=== PATIENT | female | born 1980 | race Caucasian/White ===

== ENCOUNTER 2024-10-10 08:41 | Outpatient (REF) | payer BC, SELFPAY ==
--- NOTE | ~2024-10-10 | XR_ITS ---
CLINICAL HISTORY: M25.521 - Pain in right elbow 3 view right elbow Comparison: None Findings: Suboptimal positioning. No acute fractures. Normal alignment. No significant arthritic change or erosions. No joint effusion. No radiopaque foreign body. IMPRESSION: 1. Suboptimal positioning. No acute findings. This document has been electronically signed by: Kelin Ibanez MD on 10/11/2024 08:14:32
--- NOTE | ~2024-10-10 | XR_ITS ---
CLINICAL HISTORY: M25.511 - Pain in right shoulder 2 view right shoulder Comparison: None Findings: No fractures or dislocations. No significant arthritic change. No erosions. No radiopaque foreign body. IMPRESSION: 1. No acute findings This document has been electronically signed by: Kelin Ibanez MD on 10/11/2024 08:12:24
== END 2024-10-10 08:42 | disposition home or self-care (01) ==
LOC: HO.HOSX 08:41
PROVIDERS: Visit Provider Physician Assistant
DX: M25.511 Pain in right shoulder (principal); M25.521 Pain in right elbow
CPT/HCPCS: 73030; 73080

== ENCOUNTER 2024-10-10 08:44 | Outpatient (AMB) | payer BC, SELFPAY ==
--- NOTE | 2024-10-10 08:59 | MHC.OFFVIS ---
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 Patient reports in March of 2024 she was roller skating when she fell backwards landing on her right arm. Patient was previously seen at [facility] and was told of having a radial head fracture. She was given at home exercises however these increased her pain and she had felt a snap in her bicep area. Currently she has constant stabbing pain in her shoulder and a deep throbbing pain in her elbow. States her collar bone feels broken. Limited ROM, affecting her AODL. No numbness or tingling. She misses work at least twice a week due to her pain. Finds no relief with taking Naproxen BID. 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 She fell in Mar 2024 and was dx with radial head fx. She was seen at [facility] and was treated for radial head fracture. She states she had to follow-ups. She was referred to physical therapy but states she tried to do this on her own however developed significant stiffness of the right shoulder and elbow. She tried to make a follow up with them but was unsuccessful. She presents to our office for further follow-up. She states she continues to have limitations with her right shoulder with movement along with her elbow. 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 Unable to perform internal rotation. Right elbow held in flexion. Results Reviewed Results Reviewed: X-rays of the right shoulder obtained in the office today and reviewed by me are negative for any acute or chronic abnormalities. X-rays of the right elbow are obtained today in the office and reviewed by me show a stable nondisplaced radial head fracture. Assessment & Plan Assessment & Plan (1) Stiffness of right shoulder joint: Code(s): M25.611 - Stiffness of right shoulder, not elsewhere classified Category: Medical (2) Stiffness of right elbow joint: Code(s): M25.621 - Stiffness of right elbow, not elsewhere classified Category: Medical (3) Right radial head fracture: Code(s): S52.121A - Displaced fracture of head of right radius, initial encounter for closed fracture Category: Medical Plan We discussed options today which include physical therapy to work on aggressive range of motion of the right upper extremity. I did explain that she will have to go for the next 6-8 weeks at least to attempt in improving her motion. I would like to see her back in 3 months so we can reassess to determine what the next step is if she continues to have significant stiffness. Orders: Orders XR elbow RT min 3V Today M25.521 - Pain in right elbow PT Evaluation and Treatment Today M25.611 - Stiffness of right shoulder, not elsewhere classified, M25.621 - Stiffness of right elbow, not elsewhere classified, S52.121A - Displaced fracture of head of right radius, initial encounter for closed fracture XR shoulder RT min 2V Today M25.511 - Pain in right shoulder Coding Level of Care Code New Pt Level 3 (32287) Complex EM visit Add On G2211 Diagnoses Stiffness of right shoulder joint M25.611 Stiffness of right elbow joint M25.621 Right radial head fracture S52.121A
[2024-10-10 09:01] VITALS: BMI 26.6
== END 2024-10-10 09:42 | disposition home or self-care (01) ==
PROVIDERS: PCP Internal Medicine; Visit Provider Physician Assistant
DX: M25.611 Stiffness of right shoulder, not elsewhere classified (principal); M25.621 Stiffness of right elbow, not elsewhere classified; S52.121A Displaced fracture of head of right radius, initial encounter for closed fracture
CPT/HCPCS: 99203

== ENCOUNTER → 2024-10-10 08:45 | Outpatient (BNV) | payer BC, SELFPAY | PROVIDERS: Visit Provider Radiology Diagnostic Radiology | DX: M25.521 Pain in right elbow (principal); M25.511 Pain in right shoulder | CPT/HCPCS: 73030; 73080 ==

== ENCOUNTER 2024-12-16 09:00 | Outpatient (RCR) | payer BC, SELFPAY ==
--- NOTE | 2024-10-22 11:30 | MHC.OT.EP ---
[address] [phone] Occupational Therapy Plan of Care Patient Name: Gunjan Saravia Date of Evaluation: 10/22/24 Diagnosis: Radial Head Fracture Pain Location: Pain free in resting, but moderate pain seated at desk Pain Score: 8 Pain Scale Used: Numeric (0 - 10) Aggravating Factors: Elevating, reaching, lifting movements Alleviating Factors: Aleve, tried heat packs (but having hot flashes) Assessment: 43 yo female was seen at [facility] 10/10/24 w/ right elbow pain. She has fall in March 2024 (roller skating) and was seen at [facility] with right radial head fracture. She was referred to PT but did not attend due to needing to care for mom and trialed home exercises. She continued to have high pain and developed more stiffness through the elbow and shoulder. X-rays repeated in ortho office showed no acute changes and patient now referred to OT. On assessment today, pt is still very guarded through right UE, with tightness in all shoulder planes and elbow flex, ext and supination; tending to posture with shoulder at side and elbow flex and pronated. 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 She reports difficulty w/ all reaching and lifting tasks and has 70% disability on QuickDASH. Gross grasp is 23lb (compared to 43lb in left). We have initiated OT with gentle A/AROM to right arm but I anticipate she will require extensive therapy to progress to functional use of RUE. Frequency and Duration: The patient will be seen 2x/wk 8 weeks Short Term Goals: Ind w/ self active assist range to RUE Ind w/ use of heat/cold modalities for pain management Right gross grasp 30lb Supination 50 degrees Elbow ext 40 degrees Elbow flex 120 degrees Shoulder ext 20 degrees Shoulder abd 50 Shoulder flex 50 Programs Manager Goals: Right gross grasp 40lb Ind w/ progression of strengthening Elbow ext 20 degrees Elbow flex 140 degrees Shoulder ext 40 degrees Shoulder abd 120 degrees Shoulder flex 120 degrees Shoulder int/ext rot to 45/45 degrees each Pain free w/ moderate daily activites (light homecare, self care) QuickDASH <40 pts Treatment Plan: Therapeutic Exercise Therapeutic Activity Home Exercise Program Patient Education ADL Training Ultrasound MHP Cold Packs Joint Mobilization Soft Tissue Mobilization Kinesiotaping Electronically Signed By: Jana Rawls OTR/Alexander CHT Please Sign and return to therapist. Thank you once again for your referral.
--- NOTE | 2025-01-10 10:59 | MHC.OT.DC ---
[address] [phone] F: [phone] Occupational Therapy Discharge Note Patient Name: Gunjan Saravia Provider: Josh Benitez PA-C Diagnosis: Radial Head Fracture Date of Evaluation: 10/22/24 Date of Discharge: 01/10/25 Treatments to Date: 7 Cancellations to Date: 5 No Shows to Date: 2 Discharge Status: Independent with HEP Patient Elected to Stop Visit Non-compliance Discharge Summary: Gunjan was referred to OT s/p radial head fracture in March 2024. She was initially very tight and guarded through shoulder and elbow but has progressed through course of OT with good improvements in range and strength. She had still been reporting high pain w/ stretching and good carry over w/ home program. She was last seen several weeks ago and has had 5 cancels and 2 no-shows, we will be discharging at this time. Elbow ext/flex: 25/130 w/ heat and stretch Shoulder flex 80 abd 60 Gross grasp: R 60lb L 60lb Electronically Signed By: Jana Rawls OTR/L CHT Reviewed/agree with student documentation: Therapist: Please Sign and return to therapist, thank you for your referral.
== END 2025-01-10 10:59 | disposition home or self-care (01) ==
LOC: HO.OT 09:00
PROVIDERS: PCP Internal Medicine; Visit Provider Physician Assistant
DX: S52.121D Displaced fracture of head of right radius, subsequent encounter for closed fracture with routine healing (principal)
CPT/HCPCS: 97014; 97110; 97140; 97165